=== PATIENT | female | born 1995 | race Caucasian/White ===

== ENCOUNTER → 2016-10-19 | Outpatient (REF) | payer OTHER ==
[2016-10-20 12:18] LABS: HEPATITIS B SURFACE ANTIBODY NEGATIVE (POSITIVE)
== END ==
LOC: M SFHCCAPE 09:15
PROVIDERS: ATTEND Physician Assistant
DX: Z01.84 Encounter for antibody response examination (principal)

== ENCOUNTER → 2018-05-24 | Outpatient (REF) | payer OTHER | LOC: M LAB LCGH 17:20 | PROVIDERS: ATTEND Nurse Practitioner Adult Health | DX: R87.612 Low grade squamous intraepithelial lesion on cytologic smear of cervix (LGSIL) (principal) ==

== ENCOUNTER → 2021-10-04 | Outpatient (CLI) | payer OTHER ==
[~2021-10-04] MED LIST: ISOVUE-370 76% 100ML VIAL As Ordered ONE
== END ==
LOC: M RAD 14:50
PROVIDERS: ATTEND Physician Assistant Medical
DX: R22.1 Localized swelling, mass and lump, neck (principal)
CPT/HCPCS: 70491; Q9967

== ENCOUNTER → 2022-09-01 | Outpatient (CLI) | payer OTHER ==
[~2022-09-01] MED LIST changes: +BUPR150T12 PO; -ISOVUE-370 76% 100ML VIAL As Ordered ONE; +NORE1TAB90 PO
[2022-09-01 17:50] LABS: HEMATOCRIT 38.6 % (36.0-47.0); HEMOGLOBIN 12.9 g/dl (12.0-15.5); MEAN CORPUSCULAR HEMOGLOBIN 29.9 pg (27.0-33.0); MEAN CORPUSCULAR HGB CONC 33.4 g/dl (32.0-36.5); MEAN CORPUSCULAR VOLUME 89.6 fl (80.0-96.0); PLATELET COUNT, AUTOMATED 239 10^3/uL (150-450); RED BLOOD COUNT 4.31 10^6/uL (4.00-5.40); WHITE BLOOD COUNT 9.8 10^3/uL (4.0-10.0)
[2022-09-01 18:09] LABS: HIV 1&2 SCREEN NEGATIVE (NEGATIVE)
[2022-09-01 18:17] LABS: HEPATITIS C VIRUS ABY INDEX 0.07 INDEX (<0.8)
[2022-09-01 19:31] LABS: GC DNA AMPLIFICATION NEGATIVE (NEGATIVE)
== END ==
LOC: M PLALAB 14:52
PROVIDERS: ATTEND Advanced Practice Midwife
DX: Z34.01 Encounter for supervision of normal first pregnancy, first trimester (principal)

== ENCOUNTER → 2022-11-10 | Outpatient (CLI) | payer OTHER | LOC: M WHC 09:16 | PROVIDERS: ATTEND Advanced Practice Midwife | DX: Z34.02 Encounter for supervision of normal first pregnancy, second trimester (principal) ==

== ENCOUNTER → 2022-12-22 | Outpatient (CLI) | payer OTHER | LOC: M WHC 09:35 | PROVIDERS: ATTEND Advanced Practice Midwife | DX: Z34.02 Encounter for supervision of normal first pregnancy, second trimester (principal); Z3A.26 26 weeks gestation of pregnancy ==

== ENCOUNTER → 2023-01-04 | Outpatient (CLI) | payer OTHER ==
[2023-01-04 15:45] LABS: HEMOGLOBIN 11.4 g/dl (12.0-15.5); MEAN CORPUSCULAR HEMOGLOBIN 31.2 pg (27.0-33.0); MEAN CORPUSCULAR HGB CONC 33.5 g/dl (32.0-36.5); MEAN CORPUSCULAR VOLUME 93.2 fl (80.0-96.0); PLATELET COUNT, AUTOMATED 190 10^3/uL (150-450); RED BLOOD COUNT 3.65 10^6/uL (4.00-5.40); WHITE BLOOD COUNT 13.7 10^3/uL (4.0-10.0)
== END ==
LOC: M PLALAB 13:29
PROVIDERS: ATTEND Advanced Practice Midwife
DX: Z36.9 Encounter for antenatal screening, unspecified (principal)

== ENCOUNTER 2023-04-02 10:39 | Inpatient (IN) | payer BC ==
[~2023-04-02] VITALS: Ht 167.6 cm; Wt 105.5 kg
[2023-04-02] VITALS (14 sets, daily range): BP systolic 116–138; BP diastolic 68–89
[2023-04-02] MEDS ORDERED: TUMS750C5 PO (11:05)
[2023-04-02] MEDS ORDERED: MULTTAB20 PO (11:05)
[2023-04-02] MEDS ORDERED: HOME MED LIST COMPLETE! XX SCH (11:10)
[2023-04-02] MEDS: LACTATED RINGER'S 1000 ML IV STA (11:18)
[2023-04-02] MEDS ORDERED: OXYTOCIN DRIP 30 UNITS in IV 1 EA IV PRN (11:20)
[2023-04-02] MEDS ORDERED: CARBOPROST TROMETHAMINE 250 MCG/ML AMP IM PRN (11:20)
[2023-04-02] MEDS ORDERED: OXYTOCIN INJ 10UNITS/ML 1ML VIAL IM PRN (11:20)
[2023-04-02] MEDS ORDERED: LIDOCAINE 1% MDV 20ML VIAL INFIL PRN (11:20)
[2023-04-02] MEDS ORDERED: TRANEXAMIC ACID INJection 1,000 MG in NS 100 ML IV PRN (11:20)
[2023-04-02 12:06] LABS: HEMATOCRIT 35.3 % (36.0-47.0); HEMOGLOBIN 11.7 g/dl (12.0-15.5); MEAN CORPUSCULAR HEMOGLOBIN 29.9 pg (27.0-33.0); MEAN CORPUSCULAR HGB CONC 33.1 g/dl (32.0-36.5); MEAN CORPUSCULAR VOLUME 90.3 fl (80.0-96.0); PLATELET COUNT, AUTOMATED 183 10^3/uL (150-450); RED BLOOD COUNT 3.91 10^6/uL (4.00-5.40); WHITE BLOOD COUNT 10.2 10^3/uL (4.0-10.0)
[2023-04-02] MEDS: miSOPROStol 50MCG 1/2 TABLET PO SCH (13:06)
[2023-04-02] MEDS: buPROPion **XL** TABLET 150MG (WELLBUTRIN XL) PO SCH (22:02)
[2023-04-02] MEDS: LR 1,000 ML IV SCH (22:33)
[2023-04-02] MEDS: OXYTOCIN DRIP 30 UNITS in IV 1 EA IV SCH (22:33)
[2023-04-03] VITALS (38 sets, daily range): BP systolic 93–149; BP diastolic 50–124; O2SAT 96
[2023-04-03] MEDS ORDERED: ONDANSETRON 4MG 2ML VIAL IV PRN (00:30)
[2023-04-03] MEDS ORDERED: diphenhydrAMINE 50MG/ML VIAL IV PRN (00:30)
[2023-04-03] MEDS ORDERED: NALOXONE INJ 0.4MG/1ML VIAL IV PRN (00:30)
[2023-04-03] MEDS ORDERED: ePHEDrine SULFATE 25 MG/5 ML(5MG/ML) SYRINGE IVP PRN (00:30)
[2023-04-03] MEDS ORDERED: EPIDURAL/PCA KEYS XX PRN (00:30)
[2023-04-03] MEDS: FENTANYL/ROPIVACAINE/NACL BAG 100 ML EPIDURAL SCH (00:41)
[2023-04-03] MEDS: LR 500 ML IV PRN (00:59)
[2023-04-03] MEDS: METHYLERGONOVINE MALEATE 0.2MG/ML 1ML VIAL IM PRN (09:30)
[2023-04-03] MEDS ORDERED: IBUPROFEN 600MG TAB PO PRN (09:45)
[2023-04-03] MEDS ORDERED: ACETAMINOPHEN TAB 650MG DOSE (2X325MG) PO PRN (09:45)
[2023-04-03] MEDS ORDERED: RHOGAM 300MCG (1500IU) INJ IM SCH (09:45)
[2023-04-03] MEDS ORDERED: MOM 30ML SUSPENSION UDC PO PRN (09:45)
[2023-04-03] MEDS ORDERED: ANUSOL HC CREAM 30GM TOP PRN (09:45)
[2023-04-03] MEDS: AMPICILLIN SOD/SULBACTAM SOD 3 GM in D5W MINI-BAG PLUS 100 ML IV ONE (10:46)
[2023-04-03] MEDS: IBUPROFEN 800 MG TAB PO PRN (10:46)
[2023-04-03] MEDS: ACETAMINOPHEN 500 MG TAB PO PRN (18:39)
[2023-04-03] MEDS: DOCUSATE SODIUM 100MG CAPSULE PO PRN (20:25)
[2023-04-03] MEDS: buPROPion **XL** TABLET 150MG (WELLBUTRIN XL) PO SCH (20:26)
[2023-04-04 06:00] VITALS: BP 130/79
[2023-04-04] MEDS: PRENATAL VITAMINS CHEWABLE TABLET PO SCH (08:50)
[2023-04-04] MEDS: INFLUENZA QUADRIVALENT PF VACCINE 0.5ML SYRINGE IM.IMMUN ONE (10:29)
[2023-04-04] MEDS: DIBUCAINE 1% OINTMENT 30GM TOP PRN (17:37)
[2023-04-04 18:00] VITALS: BP 110/64; O2SAT 98
[2023-04-05 05:53] VITALS: BP 119/70; O2SAT 98
[2023-04-05] MEDS: MEASLES,MUMPS,RUBELLA VACCINE INJ (MMR-II) SC.IMMUN ONE (07:08)
[2023-04-05] MEDS ORDERED: IBUP80TA PO (08:47)
[2023-04-05] MEDS ORDERED: ACET-683 PO (08:47)
== END 2023-04-05 12:20 | disposition home or self-care (01) | DRG 560 ==
LOC: M LDI 10:39 → M OBS 04-03 11:47
PROVIDERS: ADMIT Advanced Practice Midwife; ATTEND Advanced Practice Midwife
PROC: 3E0P7GC Introduction of Other Therapeutic Substance into Female Reproductive, Via Natural or Artificial Opening (ICD-10-PCS; 2023-04-02)
PROC: 10E0XZZ Delivery of Products of Conception, External Approach (ICD-10-PCS; principal; 2023-04-03)
PROC: 0KQM0ZZ Repair Perineum Muscle, Open Approach (ICD-10-PCS; 2023-04-03)
DX: O62.2 Other uterine inertia (principal); Z37.0 Single live birth; Z3A.40 40 weeks gestation of pregnancy; O70.1 Second degree perineal laceration during delivery

== ENCOUNTER → 2023-07-06 | Outpatient (REF) | payer BC ==
[~2023-07-06] MED LIST changes: +ACET-683 PO; +IBUP80TA PO; +MULTTAB20 PO; +TUMS750C5 PO
[2023-08-03 13:42] LABS: HPV APTIMA Detected (Not Detected)
== END ==
LOC: M PLALAB 07:45
PROVIDERS: ATTEND Advanced Practice Midwife
DX: Z12.4 Encounter for screening for malignant neoplasm of cervix (principal); R87.612 Low grade squamous intraepithelial lesion on cytologic smear of cervix (LGSIL)

== ENCOUNTER → 2023-07-27 | Outpatient (REF) | payer BC | LOC: M PLALAB 12:30 | PROVIDERS: ATTEND Advanced Practice Midwife | DX: N87.0 Mild cervical dysplasia (principal); N72 Inflammatory disease of cervix uteri ==

== ENCOUNTER → 2024-08-21 | Outpatient (CLI) | payer OTHER ==
[2024-08-21 15:13] LABS: PLATELET COUNT, AUTOMATED 223 10^3/uL (150-450)
[2024-08-21 15:16] LABS: HCG, SERUM QUANTITATIVE 12.7 MIU/ML (<4.2)
[2024-08-21 15:19] LABS: FREE T4 1.33 NG/DL (0.89-1.76)
[2024-08-23 16:08] LABS: VITAMIN D 1,25 DIHYDROXY 59.1 pg/mL (24.8-81.5)
[2024-08-25 22:55] LABS: CARDIOLIPIN IGA ANTIBODY < 2.0 APL-U/mL (<20.0); CARDIOLIPIN IGG ANTIBODY < 2.0 GPL-U/mL (<20.0); CARDIOLIPIN IGM ANTIBODY < 2.0 MPL-U/mL (<20.0)
== END ==
LOC: M PLALAB 13:19
PROVIDERS: ATTEND Advanced Practice Midwife
DX: N96 Recurrent pregnancy loss (principal)

== ENCOUNTER → 2024-09-08 | Outpatient (CLI) | payer BC | LOC: M PLALAB 11:41 | PROVIDERS: ATTEND Advanced Practice Midwife | DX: Z34.90 Encounter for supervision of normal pregnancy, unspecified, unspecified trimester (principal); N96 Recurrent pregnancy loss ==

== ENCOUNTER → 2024-09-10 | Outpatient (CLI) | payer BC | LOC: M PLALAB 11:38 | PROVIDERS: ATTEND Advanced Practice Midwife | DX: Z34.90 Encounter for supervision of normal pregnancy, unspecified, unspecified trimester (principal) ==

== ENCOUNTER → 2024-09-15 | Outpatient (CLI) | payer BC | LOC: M PLALAB 11:13 | PROVIDERS: ATTEND Advanced Practice Midwife | DX: O09.299 Supervision of pregnancy with other poor reproductive or obstetric history, unspecified trimester (principal); Z3A.00 Weeks of gestation of pregnancy not specified ==

== ENCOUNTER → 2024-09-17 | Outpatient (CLI) | payer BC | LOC: M PLALAB 12:00 | PROVIDERS: ATTEND Advanced Practice Midwife | DX: O09.299 Supervision of pregnancy with other poor reproductive or obstetric history, unspecified trimester (principal); Z3A.00 Weeks of gestation of pregnancy not specified ==

== ENCOUNTER → 2024-10-02 | Outpatient (CLI) | payer BC ==
[2024-10-02 17:35] LABS: PLATELET COUNT, AUTOMATED 214 10^3/uL (150-450)
[2024-10-02 18:36] LABS: HIV 1&2 SCREEN NEGATIVE (NEGATIVE)
[2024-10-02 18:45] LABS: HEPATITIS C VIRUS ABY INDEX < 0.02 INDEX (<0.8)
[2024-10-02 19:02] LABS: Trichomonas vaginalis (AMP) NOT DETECTED (NEGATIVE)
[2024-10-02 19:25] LABS: GC DNA AMPLIFICATION NEGATIVE (NEGATIVE)
== END ==
LOC: M PLALAB 14:41
PROVIDERS: ATTEND Advanced Practice Midwife
DX: O99.341 Other mental disorders complicating pregnancy, first trimester (principal)

== ENCOUNTER → 2024-12-26 | Outpatient (CLI) | payer BC ==
[~2024-12-26] MED LIST changes: +NORE-28 PO; -NORE1TAB90 PO
== END ==
LOC: M WHC 14:25
PROVIDERS: ATTEND Advanced Practice Midwife
DX: O09.292 Supervision of pregnancy with other poor reproductive or obstetric history, second trimester (principal)

== ENCOUNTER → 2024-12-30 | Outpatient (CLI) | payer BC | LOC: M PLALAB 11:24 | PROVIDERS: ATTEND Advanced Practice Midwife | DX: O28.3 Abnormal ultrasonic finding on antenatal screening of mother (principal) ==